=== PATIENT | female | born 1950 | race Caucasian/White ===

== ENCOUNTER 2021-01-10 08:31 | Emergency (ER) | payer OTHER ==
[~2021-01-10] VITALS: Ht 160 cm; Wt 49.0 kg
[2021-01-10] MEDS ORDERED: XANAX2 MG PO (08:47)
[2021-01-10] MEDS ORDERED: MEDROLDOSEPACK PO ×2 (09:13→09:27)
[2021-01-10] MEDS ORDERED: ZPAK PO ×2 (09:13→09:27)
[2021-01-10 09:28] VITALS: BP 129/85
== END 2021-01-10 09:29 | disposition home or self-care (01) ==
LOC: M.ERS 08:31
DX: J40 Bronchitis, not specified as acute or chronic (principal); Z20.822 Contact with and (suspected) exposure to COVID-19; F17.210 Nicotine dependence, cigarettes, uncomplicated; Z79.899 Other long term (current) drug therapy

== ENCOUNTER 2021-01-13 09:14 | Emergency (ER) | payer OTHER ==
[~2021-01-13] VITALS: Ht 160 cm; Wt 49.0 kg
[~2021-01-13 09:14] MED LIST: MEDROLDOSEPACK PO; XANAX2 MG PO; ZPAK PO
[2021-01-13 10:02] LABS: URINE BILIRUBIN NEGATIVE (Negative); URINE BLOOD NEGATIVE (Negative); URINE CLARITY CLEAR; URINE COLOR YELLOW; URINE GLUCOSE-RANDOM NEGATIVE (Negative); URINE KETONES NEGATIVE (Negative); URINE LEUKOCYTES-REFLEX NEGATIVE (Negative); URINE NITRITE-REFLEX NEGATIVE (Negative); URINE PROTEIN NEGATIVE (Negative); URINE UROBILINOGEN 0.2 E.U./dl (0.2-1.0)
[2021-01-13 10:02] LABS: HEMATOCRIT 35.6 % (37.0-47.0); HEMOGLOBIN 12.1 gm/dL (12.0-15.0); MCH 32.4 pg (26.0-34.0); MCHC 33.9 g/dL (28.0-37.0); MCV 95.7 fL (80.0-100.0); MPV 7.3 fl. (7.2-11.1); NUCLEATED RBCS 0 /100WBC; PLATELET COUNT* 471 thou/uL (150-400); RBC 3.72 mil/uL (4.20-5.00); RDW-CV 14.3 % (10.5-14.5)
[2021-01-13 10:11] LABS: CALCIUM 9.1 mg/dL (8.5-10.1); CREATININE 0.8 mg/dL (0.6-1.3); POTASSIUM 3.8 mmol/L (3.5-5.1)
[2021-01-13 10:15] LABS: ALBUMIN 3.6 g/dL (3.4-5.0); TOTAL BILIRUBIN 0.4 mg/dL (<0.1-1.0); TOTAL PROTEIN 7.5 g/dL (6.4-8.2)
[2021-01-13 10:30] LABS: ABSOLUTE BASOPHILS 0.1 thou/uL (0.0-0.2); ABSOLUTE EOSINOPHILS 0.1 thou/uL (0.0-0.7); ABSOLUTE LYMPHOCYTES 0.8 thou/uL (0.8-5.3); ABSOLUTE MONOCYTES 0.2 thou/uL (0.0-1.2); ABSOLUTE NEUTROPHILS 7.8 thou/uL (1.6-8.1); ANISOCYTOSIS 1+
[2021-01-13 10:31] LABS: PLATELET ESTIMATE ADEQUATE
[2021-01-13 10:48] VITALS: BP 120/65
--- NOTE | 2021-01-13 12:25 | EKG ---
[place] [address] ELECTROCARDIOGRAM REPORT Name: ISAAC CUELLAR Room: [facility]#: [id number] Admission: 01/13/21 Attend Phys: Discharge: 01/13/21 Date of : 52 Date of Service: 01/13/2158 Report #: [id number] THIS REPORT FOR: //name// [facility] ED Test Date: 2021-01-13 Test Time: 09:58:24 Pat Name: ISAAC GUZMANANALIA Department: Room: Gender: [employer]: : [id number] Requested By: Bart Mireles Order Number: [id number] MD: Caesar Goldsmith Measurements Intervals [place] Rate: 82 P: 59 CT: 137 QRS: -76 QRSD: 132 T: 45 QT: 427 QTc: 499 Interpretive Statements Sinus rhythm RBBB and LAFB No previous ECG available for comparison Electronically Signed On 01-13-2021 12:25:07 INSULATION BLOWER by Caesar Goldsmith [email or web address] <ELECTRONICALLY SIGNED> By: Caesar Goldsmith MD, [facility] 01/13/21 1225 7 Caesar Goldsmith MD, FAC /EPI
== END 2021-01-13 10:49 | disposition home or self-care (01) ==
LOC: M.ERS 09:14
PROVIDERS: Emergency Medicine Emergency Medical Services
DX: R11.2 Nausea with vomiting, unspecified (principal); R19.7 Diarrhea, unspecified; Z79.899 Other long term (current) drug therapy; Z91.041 Radiographic dye allergy status